=== PATIENT | female | born 1970 | race Caucasian/White ===

== ENCOUNTER 2018-08-02 07:13 | Emergency (ER) | payer MEDICAID, OTHER ==
[2018-08-02 07:26] VITALS: BP 127/88
[2018-08-02] MEDS ORDERED: Ondansetron 4 MG/2 ML SDV IVPUSH ONE (07:54)
--- NOTE | 2018-08-02 07:59 | EDM.PDOC ---
ED HPI GENERAL MEDICAL PROBLEM - General Chief Complaint: Chest Pain Stated Complaint: PAIN UNDER BREAST Time Seen by Provider: 08/02/18 07:44 Source of Information: Reports: Patient, Family (Daughter), RN Notes Reviewed History Limitations: Reports: No Limitations - History of Present Illness INITIAL COMMENTS - FREE TEXT/NARRATIVE: The patient states that she developed epigastric pain (not pain under her breast , as reported by the triage nurse) that developed around 05:00 this morning. She states that it woke her from sleep. It is a burning/squeezing sensation. It did not radiate anywhere, including through to her back. She had associated nausea, and one episode of emesis while she was having pain. No associated diarrhea or urinary symptoms. No associated dyspnea, diaphoresis, or sense of impending doom. The pain resolved en route to the ED - total duration was about 1.5 hours. The patient reports that she also felt dizzy, and still feels dizzy, although has none of her other symptoms. No prior similar symptoms. The patient reports that she took 3 ibuprofen last night. Here in the ED, the patient's vital signs are stable. The patient's PCP is Radha Rodríguez. 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: Psychiatric History: Reports: ADD (untreated) - Infectious Disease History Infectious Disease History: Reports: Chicken Pox - Past Surgical History HEENT Surgical History: Reports: Oral Surgery (Dental extractions), Tonsillectomy GI Surgical History: Reports: Hernia, Inguinal (bilateral) Social & Family History - Tobacco Use Smoking Status *Q: Former Smoker Years of Tobacco use: 34 Packs/Tins Daily: 1 Month/Year Tobacco Last Used: Quit September 2017 - Alcohol Use Alcohol Use History: Yes Alcohol Use Frequency: Rarely - Recreational Drug Use Recreational Drug Use: Yes Drug Use in Last 12 Months: No Recreational Drug Type: Reports: Methamphetamine (last snorted 2011) - Living Situation & Occupation Living situation: Reports: (), with Family (Daughter) 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 ED EXAM, GI/ABD - Physical Exam Exam: See Below Exam Limited By: No Limitations General Appearance: Alert, WD/WN, No Apparent Distress Eyes: Bilateral: Normal Appearance, EOMI Ears: Normal External Exam, Hearing Grossly Normal Nose: Normal Inspection Throat/Mouth: Normal Inspection, Normal Lips, Normal Voice, No Airway Compromise Head: Atraumatic, Normocephalic Neck: Normal Inspection, Full Range of Motion Respiratory/Chest: No Respiratory Distress, Lungs Clear, Normal Breath Sounds, No Accessory Muscle Use Cardiovascular: Normal Peripheral Pulses, Regular Rate, Rhythm, No Edema, No Gallop, No JVD, No Murmur, No Rub GI/Abdominal Exam: Normal Bowel Sounds, Soft, No Organomegaly, No Distention, No Abnormal Bruit, No Mass, Tender (Mild, to the epigastric region only. Essentially nontender elsewhere.) (Female) Exam: Deferred Rectal (Female) Exam: Deferred Back Exam: Normal Inspection, Full Range of Motion. No: CVA Tenderness (L), CVA Tenderness (R) Extremities: Normal Inspection, Normal Range of Motion, No Pedal Edema, Normal Capillary Refill Neurological: Alert, Oriented, Normal Cognition, No Motor/Sensory Deficits Psychiatric: Normal Affect Skin Exam: Warm, Dry, Intact, Normal Color, No Rash EKG INTERPRETATION EKG Date: 08/02/18 Time: 07:24 Rhythm: NSR Rate (Beats/Min): 72 [place]: Normal (Borderline LAD) P-Wave: Present QRS: Normal (Late transition) ST-T: Normal QT: Normal Comparison: NA - No Prior EKG Course - Vital Signs Last Recorded V/S: Last Vital Signs Temp 36.6 C 08/02/18 07:24 Pulse 73 08/02/18 07:24 Resp 17 08/02/18 07:24 BP 127/88 08/02/18 07:24 Pulse Ox 98 08/02/18 07:24 - Orders/Labs/Meds Labs: Laboratory Tests 08/02/18 08/02/18 Range/Units 08:07 08:07 WBC 7.35 (3.98-10.04) K/mm3 RBC 4.48 (3.98-5.22) M/mm3 Hgb 12.0 (11.2-15.7) gm/L Hct 37.6 (34.1-44.9) % MCV 83.9 (79.4-94.8) fl MCH 26.8 (25.6-32.2) pg MCHC 31.9 L (32.2-35.5) g/dl RDW Std Deviation 50.1 H (36.4-46.3) fL Plt Count 368 (182-369) K/mm3 MPV 9.2 L (9.4-12.3) fl Neutrophils % (Manual) 77 H (40-60) % Band Neutrophils % 0 (0-10) % Lymphocytes % (Manual) 21 (20-40) % Atypical Lymphs % 0 % Monocytes % (Manual) 1 L (2-10) % Eosinophils % (Manual) 1 (0.7-5.8) % Basophils % (Manual) 0 L (0.1-1.2) Platelet Estimate Adequate RBC Morph Comment Normal Sodium 139 (136-145) mEq/L Potassium 3.8 (3.5-5.1) mEq/L Chloride 104 (98-107) mEq/L Carbon Dioxide 25 (21-32) mEq/L Anion Gap 13.8 (5-15) BUN 18 (7-18) mg/dL Creatinine 0.6 (0.55-1.02) mg/dL Est Cr Clr Drug Dosing 108.51 mL/min Estimated GFR (MDRD) > 60 (>60) mL/min BUN/Creatinine Ratio 30.0 H (14-18) Glucose 88 (74-106) mg/dL Calcium 8.8 (8.5-10.1) mg/dL Total Bilirubin 0.4 (0.2-1.0) mg/dL AST 22 (15-37) U/L ALT 36 (14-59) U/L Alkaline Phosphatase 70 (46-116) U/L Total Protein 7.2 (6.4-8.2) g/dl Albumin 3.6 (3.4-5.0) g/dl Globulin 3.6 gm/dL Albumin/Globulin Ratio 1.0 (1-2) Lipase 116 (73-393) U/L Meds: Medications Discontinued Medications Generic Name Dose Route Start Last Admin Trade Name Freq PRN Reason Stop Dose Admin Sodium Chloride 1,000 mls @ 150 mls/hr 08/02/18 08:00 08/02/18 08:07 Normal Saline IV 150 mls/hr ASDIRECTED VIDYA Administration Ondansetron HCl 4 mg 08/02/18 07:54 08/02/18 08:07 Zofran IVPUSH 08/02/18 07:55 4 mg ONETIME ONE Administration - Re-Assessments/Exams Free Text/Narrative Re-Assessment/Exam: 08/02/18 07:58 The patient was experiencing severe upper abdominal pain that lasted about 1.5 hours, but essentially resolved en route to the ED. At present, she complains of no pain, although on examination, she does have some epigastric tenderness. I have ordered blood work and a urine test, but I do not see an indication for an imaging study at this time. 08/02/18 09:29 Test results discussed with the patient. Today's workup is unremarkable. The patient does not have pancreatitis. Based on her history and physical examination, I am concerned that she may have been experiencing biliary colic. I recommended that she eat a low-fat diet, and I will refer her to Dr. Hayden for further evaluation of her gallbladder. In the meantime, I will send in a prescription for Zofran ODT. Departure - Departure Time of Disposition: 09:29 Disposition: Home, Self-Care 01 Condition: Good Clinical Impression: Epigastric abdominal pain of unknown etiology - Discharge Information *PRESCRIPTION DRUG MONITORING PROGRAM REVIEWED*: Not Applicable *COPY OF PRESCRIPTION DRUG MONITORING REPORT IN PATIENT ANGEL: Not Applicable Prescriptions: Ondansetron [Zofran ODT] 1 tab PO Q8H PRN #10 tab.dis PRN Reason: Nausea/Vomiting Instructions: Abdominal Pain, Adult, [id number] Referrals: Radha Rodríguez PA-C [Primary Care Provider] - Griselda Hayden MD [Physician] - Forms: ED Department Discharge Additional Instructions: You were seen in the emergency room for upper abdominal pain, along with nausea and vomiting. Workup in the ER included blood work and an ECG. Your entire workup was unremarkable. You do not have pancreatitis. The cause of your upper abdominal pain is not clear, but may be due to a sick gallbladder. We recommend that you eat a low-fat diet, as fatty foods may worsen your pain. A prescription for the anti-nausea medicine Zofran has been sent to the [facility], [address] [place] [address]. Dissolve 1 tablet on your tongue up to every 8 hours, as needed for nausea/vomiting. Follow-up with the surgeon Dr. Griselda Hayden for further evaluation of your gallbladder. If any other problems, please do not hesitate to return to the ER.
[2018-08-02] MEDS ORDERED: Sodium Chloride 0.9% 1,000 ML IV SCH (08:00)
== END 2018-08-02 09:48 | disposition home or self-care (01) ==
LOC: JD.ED 07:13
DX: R10.13 Epigastric pain (principal); R11.2 Nausea with vomiting, unspecified; Z87.891 Personal history of nicotine dependence; Z90.89 Acquired absence of other organs
CPT/HCPCS: 36415; 80053; 83690; 85007; 85027; 93005; 96361; 96374; 99285; J2405; J7040

== ENCOUNTER 2018-10-29 21:23 | Emergency (ER) | payer MEDICAID ==
[2018-10-29 21:33] VITALS: BP 143/99
--- NOTE | 2018-10-29 22:07 | EDM.PDOC ---
ED HPI GENERAL MEDICAL PROBLEM - General Chief Complaint: Gastrointestinal Problem Stated Complaint: ABDOMINAL PAIN VOMITING Time Seen by Provider: 10/29/18 21:28 Source of Information: Reports: Patient History Limitations: Reports: No Limitations - History of Present Illness INITIAL COMMENTS - FREE TEXT/NARRATIVE: This is a 48-year-old female. She states that for the last couple of years usually once a month she will eat food and within 10-20 minutes she'll get severe abdominal pain and she will vomit but no food will come up. Over the last 2 days this is been happening pretty consistently every time she eats. Tonight she went [employer] had a full course meal and some dessert and about 10 -20 minutes later she had to vomit with severe upper abdominal pain. She states the severe upper abdominal pain is eased up considerably but she is here in the ER to figure out what is causing this. She says her pain is more in the epigastric area and she doesn't think he goes through to her back. She's had no fever no chills. She's never had her gallbladder investigated and she denies any history of ulcers or esophagitis. She denies any other acute symptoms. She does not appear to be in distress at this time. Abdomen Pain Score (Numeric/FACES): 4 - Related Data Allergies Allergy/AdvReac Type Severity Reaction Status Date / Time No Known Allergies Allergy Verified 08/02/18 07:26 Home Meds: Home Meds Ondansetron [Zofran ODT] 1 tab PO Q8H PRN #10 tab.dis 08/02/18 [Rx] Esomeprazole Magnesium [Nexium 24Hr] 20 mg PO QAM #30 capsule. 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: Psychiatric History: Reports: ADD, Anxiety - Infectious Disease History Infectious Disease History: Reports: Chicken Pox - Past Surgical History HEENT Surgical History: Reports: Oral Surgery, Tonsillectomy Other HEENT Surgeries/Procedures: No teeth GI Surgical History: Reports: Hernia, Inguinal Social & Family History - Tobacco Use Smoking Status *Q: Former Smoker Years of Tobacco use: 30 Used Tobacco, but Quit: Yes Month/Year Tobacco Last Used: 09/2017 - Caffeine Use Caffeine Use: Reports: None - Recreational Drug Use Recreational Drug Use: No - Living Situation & Occupation Living situation: Reports: (), with Family (Daughter) 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 Denies: Black Stool, Bloody Stool, Constipation, Diarrhea, Decreased Appetite, Difficulty Swallowing : Reports: No Symptoms Musculoskeletal: Reports: No Symptoms Skin: Reports: No Symptoms Neurological: Reports: No Symptoms Psychiatric: Reports: No Symptoms Hematologic/Lymphatic: Reports: No Symptoms ED EXAM, GI/ABD - Physical Exam Exam: See Below Exam Limited By: No Limitations General Appearance: Alert, WD/WN, No Apparent Distress Eyes: Bilateral: Normal Appearance Ears: Normal External Exam Nose: Normal Inspection Throat/Mouth: Normal Inspection, Normal Lips, Normal Voice, No Airway Compromise Head: Normocephalic Neck: Supple Respiratory/Chest: No Respiratory Distress, Lungs Clear, Normal Breath Sounds Cardiovascular: Regular Rate, Rhythm, No Murmur GI/Abdominal Exam: Soft, Other (Operation of her abdomen reveals epigastric soreness on palpation but there is no masses, she is also tender in the right upper quadrant, the lower abdomen is nontender and I cannot get any referred pain around the back by palpation in the right upper quadrant) Back Exam: Full Range of Motion Extremities: Normal Inspection, Normal Range of Motion Neurological: Alert, Oriented Psychiatric: Normal Affect, Normal Mood Skin Exam: Warm, Dry Course - Vital Signs Last Recorded V/S: Last Vital Signs Temp 96.9 F 10/29/18 21:30 Pulse 103 H 10/29/18 21:30 Resp 20 10/29/18 21:30 BP 143/99 H 10/29/18 21:30 Pulse Ox 97 10/29/18 21:30 - Orders/Labs/Meds Orders: Active Orders 24 hr Category Date Time Status Abdomen Ltd [US] Stat Exams 10/29/18 21:56 Taken Labs: Laboratory Tests 10/29/18 10/29/18 10/29/18 Range/Units 22:10 22:10 22:10 WBC 5.74 (3.98-10.04) K/mm3 RBC 4.36 (3.98-5.22) M/mm3 Hgb 11.7 (11.2-15.7) gm/L Hct 36.7 (34.1-44.9) % MCV 84.2 (79.4-94.8) fl MCH 26.8 (25.6-32.2) pg MCHC 31.9 L (32.2-35.5) g/dl RDW Std Deviation 52.6 H (36.4-46.3) fL Plt Count 389 H (182-369) K/mm3 MPV 9.3 L (9.4-12.3) fl Neut % (Auto) 38.1 (34.0-71.1) % Lymph % (Auto) 45.3 (19.3-51.7) % [place] % (Auto) 14.1 H (4.7-12.5) % Eos % (Auto) 1.6 (0.7-5.8) Baso % (Auto) 0.9 (0.1-1.2) % Neut # (Auto) 2.19 (1.56-6.13) K/mm3 Lymph # (Auto) 2.60 (1.18-3.74) K/mm3 [place] # (Auto) 0.81 H (0.24-0.36) K/mm3 Eos # (Auto) 0.09 (0.04-0.36) K/mm3 Baso # (Auto) 0.05 (0.01-0.08) K/mm3 Sodium 141 (136-145) mEq/L Potassium 3.8 (3.5-5.1) mEq/L Chloride 106 (98-107) mEq/L Carbon Dioxide 27 (21-32) mEq/L Anion Gap 11.8 (5-15) BUN 14 (7-18) mg/dL Creatinine 0.9 (0.55-1.02) mg/dL Est Cr Clr Drug Dosing 75.15 mL/min Estimated GFR (MDRD) > 60 (>60) mL/min BUN/Creatinine Ratio 15.6 (14-18) Glucose 93 (74-106) mg/dL Calcium 9.1 (8.5-10.1) mg/dL Total Bilirubin 0.2 (0.2-1.0) mg/dL AST 20 (15-37) U/L ALT 24 (14-59) U/L Alkaline Phosphatase 73 (46-116) U/L Total Protein 7.2 (6.4-8.2) g/dl Albumin 3.7 (3.4-5.0) g/dl Globulin 3.5 gm/dL Albumin/Globulin Ratio 1.1 (1-2) Lipase 295 (73-393) U/L H. pylori IgG Antibody Negative (NEGATIVE) - Radiology Interpretation Free Text/Narrative:: All bladder ultrasound did not show any acute gallstones or any other acute abnormalities. - Re-Assessments/Exams Free Text/Narrative Re-Assessment/Exam: 10/29/18 23:25 I spoke to the patient regarding the gallbladder ultrasound as well as the blood work and the lipase and liver enzymes. And that her H. pylori was negative. I still believe she has some irritation of the stomach or possibly a malfunctioning gallbladder is causing her to have the abdominal pain and the nausea and vomiting after she eats. She knows she has to follow-up with her family doctor this week for continued evaluation of these symptoms. I encouraged her to stay away from hard to digest foods and stay on easy to digest foods. Departure - Departure Time of Disposition: 23:26 Disposition: Home, Self-Care 01 Condition: Good Clinical Impression: Abdominal cramps Nausea & vomiting Qualifiers: Vomiting type: unspecified Vomiting Intractability: non-intractable Qualified Code(s): R11.2 - Nausea with vomiting, unspecified - Discharge Information *PRESCRIPTION DRUG MONITORING PROGRAM REVIEWED*: Not Applicable *COPY OF PRESCRIPTION DRUG MONITORING REPORT IN PATIENT ANGEL: Not Applicable Prescriptions: Esomeprazole Magnesium [Nexium 24Hr] 20 mg PO QAM #30 capsule. Referrals: Radha Rodríguez PA-C [Primary Care Provider] - Forms: ED Department Discharge Additional Instructions: Soon as you get the Nexium start taking it, you need to stay on easy to digest foods such as yogurt, crackers, toast and fruit and stay away from the hard to digest foods that are oily, greasy, fried and meat products and vegetables, you must follow up with your family doctor for continued workup of these symptoms since you still could have a malfunctioning gallbladder though you don't have gallstones, return to the ER if you worsen - My Orders Last 24 Hours: My Active Orders 10/29/18 21:56 Abdomen Ltd [US] Stat - Assessment/Plan Last 24 Hours: My Active Orders 10/29/18 21:56 Abdomen Ltd [US] Stat
--- NOTE | 2018-10-31 08:27 | US ---
Limited abdominal ultrasound: Multiple real-time images were obtained of the right upper abdomen. Comparison: Prior CT abdomen and pelvis exam of 06/29/13. Findings: Liver shows no focal parenchymal abnormality. Gallbladder not well distended. No shadowing gallstones are seen. Gallbladder wall appears within normal limits for nondistended gallbladder. No biliary duct dilatation is seen. Right kidney shows no hydronephrosis or mass has a length of 8.5 cm. Majority of the pancreas is obscured from bowel gas. Inferior vena cava is patent. Portal vein shows normal hepatopedal flow. Impression: 1. Poorly distended gallbladder. 2. Incompletely seen pancreas due to bowel gas. 3. Right upper quadrant abdominal ultrasound is otherwise unremarkable. Diagnostic code #2 I agree with preliminary report from [facility], finalized on 10/30/18, 12:19 AM Central Time
== END 2018-10-29 23:41 | disposition home or self-care (01) ==
LOC: JD.ED 21:23
DX: R10.30 Lower abdominal pain, unspecified (principal); R10.13 Epigastric pain; R10.811 Right upper quadrant abdominal tenderness; R11.2 Nausea with vomiting, unspecified; Z87.891 Personal history of nicotine dependence
CPT/HCPCS: 36415; 76705; 76705-26; 80053; 83690; 85025; 86677; 99283; 99284-25

== ENCOUNTER 2019-08-09 14:57 | Emergency (ER) | payer MEDICAID ==
[2019-08-09 15:09] VITALS: BP 137/81; PULSE 98
[2019-08-09] MEDS ORDERED: Ketorolac 60 MG/2 ML SDV IM ONE (15:40)
--- NOTE | 2019-08-09 15:45 | EDM.PDOC ---
ED HPI GENERAL MEDICAL PROBLEM - General Chief Complaint: Upper Extremity Injury/Pain Stated Complaint: L ELBOW INJURY Time Seen by Provider: 08/09/19 15:04 Source of Information: Reports: Patient, RN Notes Reviewed History Limitations: Reports: No Limitations - History of Present Illness INITIAL COMMENTS - FREE TEXT/NARRATIVE: Patient is a 49-year-old female who presents to the ED for the evaluation for a left elbow injury. Patient notes that around 930 this morning, she slipped and fell on the ice ended up falling onto her left elbow and left wrist. She did take 400 mg ibuprofen at around 1 p.m. She denies any pain into her shoulder, or upper arm. 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 She is not having any sort of numbness or tingling distal to the injury as well. There is no appreciable swelling noted in the joint itself. She is able to supinate and pronate without much difficulty. Her primary care provider is Radha Rodríguez. Patient notes she is right-hand dominant. Left Arm Pain Score (Numeric/FACES): 10 - Related Data Allergies Allergy/AdvReac Type Severity Reaction Status Date / Time No Known Allergies Allergy Verified 08/09/19 15:09 Home Meds: Home Meds Ondansetron [Zofran ODT] 1 tab PO Q8H PRN #10 tab.dis 08/02/18 [Rx] Esomeprazole Magnesium [Nexium 24Hr] 20 mg PO QAM #30 capsule. 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: Psychiatric History: Reports: ADD, Anxiety - Infectious Disease History Infectious Disease History: Reports: Chicken Pox - Past Surgical History HEENT Surgical History: Reports: Oral Surgery, Tonsillectomy Other HEENT Surgeries/Procedures: No teeth GI Surgical History: Reports: Hernia, Inguinal Social & Family History - Tobacco Use Smoking Status *Q: Former Smoker Used Tobacco, but Quit: Yes Month/Year Tobacco Last Used: 07/20/2016 - Caffeine Use Caffeine Use: Reports: None - Recreational Drug Use Recreational Drug Use: No - Living Situation & Occupation Living situation: Reports: (), with Family (Daughter) 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 Musculoskeletal: Reports: Arm Pain (L elbow, L wrist) Neurological: Denies: Numbness, Tingling ED EXAM, GENERAL - Physical Exam Exam: See Below Exam Limited By: No Limitations General Appearance: Alert, WD/WN, No Apparent Distress Respiratory/Chest: No Respiratory Distress, Lungs Clear, Normal Breath Sounds, No Accessory Muscle Use, Chest Non-Tender Cardiovascular: Normal Peripheral Pulses, Regular Rate, Rhythm, No Murmur Peripheral Pulses: 3+: Radial (L), Radial (R) Extremities: Normal Inspection, Normal Range of Motion (pt is able to flex/ extend, pronate and supinate L elbow with minimal difficulty. L wrist is able to flex/extend without much difficulty as well. Meter Calibrator strength normal.), Normal Capillary Refill Neurological: Alert, Oriented, Normal Cognition, No Motor/Sensory Deficits Psychiatric: Normal Affect, Normal Mood Course - Vital Signs Last Recorded V/S: Last Vital Signs Temp 98.5 F 08/09/19 15:05 Pulse 98 08/09/19 15:05 Resp 18 08/09/19 15:05 BP 137/81 08/09/19 15:05 Pulse Ox 95 08/09/19 15:05 - Orders/Labs/Meds Orders: Active Orders 24 hr Category Date Time Status Elbow Min 3V Lt [CR] Stat Exams 08/09/19 15:09 Ordered Wrist Comp Min 3V Lt [CR] Stat Exams 08/09/19 15:09 Ordered Ketorolac [Toradol] Med 08/09/19 15:40 Once 60 mg IM ONETIME ONE Medication Orders Ketorolac Tromethamine (Toradol) 60 mg IM ONETIME ONE Stop: 08/09/19 15:41 Meds: Medications Generic Name Dose Route Start Last Admin Trade Name Freq PRN Reason Stop Dose Admin Ketorolac Tromethamine 60 mg 08/09/19 15:40 Toradol IM 08/09/19 15:41 ONETIME ONE - Re-Assessments/Exams Free Text/Narrative Re-Assessment/Exam: 08/09/19 15:48 Patient presents to the ED for the evaluation of a left elbow injury and left wrist injury. X-rays were ordered at time of triage, there is a joint effusion noted on the elbow x-ray, no acute fracture at this time. Radiology recommends a repeat study in around 10 to 14 days to make sure there is no occult fracture present. The wrist x-ray appears to be within normal limits, no acute fractures or bony abnormalities appreciated. Patient will be given an IM injection of Toradol, and a sling for management, and have her follow-up with her care provider in 10 to 14 days for a repeat x-ray. Departure - Departure Time of Disposition: 15:50 Disposition: Home, Self-Care 01 Condition: Fair Clinical Impression: Effusion of elbow joint, left Injury of left elbow Qualifiers: Encounter type: initial encounter Qualified Code(s): S59.902A - Unspecified injury of left elbow, initial encounter - Discharge Information *PRESCRIPTION DRUG MONITORING PROGRAM REVIEWED*: No *COPY OF PRESCRIPTION DRUG MONITORING REPORT IN PATIENT ANGEL: No Instructions: How to Use a Sling, [id number] Referrals: Radha Rodríguez PA-C [Primary Care Provider] - Additional Instructions: You have been evaluated in the ED for your left elbow/wrist injury. Your x-ray demonstrated a joint effusion in your left elbow, the radiologist recommends that you have a repeat elbow x-ray done in 10 to 14 days to rule out an occult fracture that was not made apparent at today's visit. Your wrist x- ray demonstrated no fracture or bony abnormality. You will be sent home with a sling for initial management, please keep your arm in this as much as tolerated to help provide pain relief. Please use ice as tolerated to the affected area. Please try to elevate the affected area to relieve swelling. You may take Tylenol 500 mg or ibuprofen 600mg q6 hrs for pain relief. Please do so until you have a tolerable level of pain with activity. Do not exceed 4000mg Tylenol or 3200mg ibuprofen in a 24 hour time period. Please return to ED if your symptoms should change or worsen. Sepsis Event Note - Evaluation Sepsis Screening Result: No Definite Risk - Focused Exam Vital Signs: Vital Signs Temp Pulse Resp BP Pulse Ox 08/09/19 15:05 98.5 F 98 18 137/81 95 Date Exam was Performed: 08/09/19 Time Exam was Performed: 15:40 - My Orders Last 24 Hours: My Active Orders 08/09/19 15:09 Elbow Min 3V Lt [CR] Stat Wrist Comp Min 3V Lt [CR] Stat 08/09/19 15:40 Ketorolac [Toradol] 60 mg IM ONETIME ONE - Assessment/Plan Last 24 Hours: My Active Orders 08/09/19 15:09 Elbow Min 3V Lt [CR] Stat Wrist Comp Min 3V Lt [CR] Stat 08/09/19 15:40 Ketorolac [Toradol] 60 mg IM ONETIME ONE
--- NOTE | 2019-08-09 15:46 | CR ---
Left wrist: 4 views left wrist are obtained. Comparison: No previous wrist exam. Joint spaces within the left wrist are preserved. No acute fracture, dislocation or other bony abnormality is appreciated. Impression: 1. No abnormality is identified on left wrist exam. Diagnostic code #1 This report was dictated in [place] Standard Time
--- NOTE | 2019-08-09 15:46 | CR ---
Left elbow: 4 views left elbow were obtained. Comparison: No prior elbow exam. Joint effusion is seen. No fracture is appreciated on this exam. No dislocation or other abnormality is seen. Impression: 1. Joint effusion without definite acute bony abnormality. Recommend repeat study in 10-14 days to rule out an occult fracture not seen on current study. Diagnostic code #3 This report was dictated in [place] Standard Time
== END 2019-08-09 16:25 | disposition home or self-care (01) ==
LOC: JD.ED 14:57
DX: S59.902A Unspecified injury of left elbow, initial encounter (principal); M25.422 Effusion, left elbow; Z87.891 Personal history of nicotine dependence; W00.0XXA Fall on same level due to ice and snow, initial encounter
CPT/HCPCS: 73080; 73110; 96372; 99283; J1885

== ENCOUNTER 2021-02-08 19:13 | Emergency (ER) | payer BC, MEDICAID ==
[2021-02-08 19:26] VITALS: BP 180/98; PULSE 96
--- NOTE | 2021-02-08 19:45 | EDM.PDOC ---
ED HPI GENERAL MEDICAL PROBLEM - General Chief Complaint: General Stated Complaint: EXPOSED TO SOMEONE WITH COVID Time Seen by Provider: 02/08/21 19:25 Source of Information: Reports: Patient, RN Notes Reviewed History Limitations: Reports: No Limitations - History of Present Illness INITIAL COMMENTS - FREE TEXT/NARRATIVE: Patient is a 50-year-old female who presents to the ER to be tested for COVID- 19. Patient works at [employer], and states that a fellow coworker she works closely with tested positive yesterday for the virus. She was called and made notified by [employer] today that she had been exposed to someone. States she is not had the vaccine, and she has had these type of "exposures" at least 3-4 times in the past and has never contracted the disease. Patient is not having any fevers or chills, cough or shortness of breath, nausea/vomiting/diarrhea. Does state that she has to get on a plane to go to [place] on Thursday, and needed a COVID-19 test before getting on the plane as well. - Related Data Allergies Allergy/AdvReac Type Severity Reaction Status Date / Time No Known Allergies Allergy Verified 02/08/21 19:24 Home Meds: Home Meds . [No Known Home Meds] 02/08/21 [History] Past Medical History Gastrointestinal History: Reports: Other (See Below) Other Gastrointestinal History: double hernia surgery [employer] History: Reports: Psychiatric History: Reports: ADD, Anxiety, Other (See Below) Other Psychiatric History: PICA - Infectious Disease History Infectious Disease History: Reports: Chicken Pox - Past Surgical History HEENT Surgical History: Reports: Oral Surgery, Tonsillectomy Other HEENT Surgeries/Procedures: No teeth GI Surgical History: Reports: Cholecystectomy, Hernia, Inguinal Social & Family History - Tobacco Use Tobacco Use Status *Q: Former Tobacco User Used Tobacco, but Quit: Yes Month/Year Tobacco Last Used: 2017 - Caffeine Use Caffeine Use: Reports: Coffee - Recreational Drug Use Recreational Drug Use: No - Living Situation & Occupation Living situation: Reports: (), with Family (Daughter) 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 ED EXAM, GENERAL - Physical Exam Exam: See Below Exam Limited By: No Limitations General Appearance: Alert, WD/WN, No Apparent Distress Respiratory/Chest: No Respiratory Distress, Lungs Clear, Normal Breath Sounds, No Accessory Muscle Use, Chest Non-Tender Cardiovascular: Normal Peripheral Pulses, Regular Rate, Rhythm, No Edema Peripheral Pulses: 2+: Radial (L), Radial (R) Extremities: Normal Inspection, Normal Capillary Refill Neurological: Alert, Oriented, Normal Cognition, No Motor/Sensory Deficits Psychiatric: Normal Affect, Normal Mood Skin Exam: Warm, Dry, Intact, Normal Color, No Rash Course - Vital Signs Last Recorded V/S: Last Vital Signs Temp 97 F 02/08/21 19:23 Pulse 96 02/08/21 19:23 Resp 14 02/08/21 19:23 BP 180/98 H 02/08/21 19:23 Pulse Ox 97 02/08/21 19:23 - Orders/Labs/Meds Labs: Laboratory Tests 02/08/21 Range/Units 19:41 Influenza Type A RNA Negative (NEGATIVE) Influenza Type B RNA Negative (NEGATIVE) SARS-CoV-2 RNA (DRU) Negative (NEGATIVE) - Re-Assessments/Exams Free Text/Narrative Re-Assessment/Exam: 02/08/21 19:43 Patient presents to the ER for COVID-19 screen. Patient has been exposed to someone with COVID-19. We will go ahead and do a COVID-19 screen for today's purposes however I did warn her that the timeline of events/exposure, she could develop symptoms after getting on the plane even with a negative test today. Patient verbalized understanding. 02/08/21 20:54 Patient's Covid screen is negative for today's purposes. Departure - Departure Time of Disposition: 20:54 Disposition: Home, Self-Care 01 Condition: Good Clinical Impression: Exposure to COVID-19 virus - Discharge Information *PRESCRIPTION DRUG MONITORING PROGRAM REVIEWED*: No *COPY OF PRESCRIPTION DRUG MONITORING REPORT IN PATIENT ANGEL: No Referrals: PCP,None [Primary Care Provider] - Forms: ED Department Discharge Additional Instructions: You were evaluated in the ER today for your exposure to COVID-19. The nasal swab taken at today's visit was negative. At this time you do not have COVID-19. Please return to the ER at any time if your symptoms should change or worsen. Sepsis Event Note (ED) - Evaluation Sepsis Screening Result: No Definite Risk - Focused Exam Vital Signs: Vital Signs Temp Pulse Resp BP Pulse Ox 02/08/21 19:23 97 F 96 14 180/98 H 97
[2021-02-08 20:48] LABS: CORONAVIRUS COVID-19 NAA NEGATIVE (NEGATIVE)
== END 2021-02-08 21:05 | disposition home or self-care (01) ==
LOC: JD.ED 19:13
DX: Z20.822 Contact with and (suspected) exposure to COVID-19 (principal); Z87.891 Personal history of nicotine dependence
CPT/HCPCS: 0240U; 99282